=== PATIENT | female | born 1965 | race Caucasian/White ===

== ENCOUNTER → 2018-10-21 08:40 | Outpatient (CLI) | payer OTHER, SELFPAY ==
[2018-10-21 10:09] LABS: Add Manual Diff / Slide Review NO; Basophils Absolute Auto 0 /uL (0-100); Basophils Percent Auto 0.4 % (0-2); Eosinophils Absolute Auto 200 /uL (0-450); Eosinophils Percent Auto 3.1 % (2-4); Hematocrit 37.2 % (36-46); Hemoglobin 12.3 g/dL (12.0-16.0); Lymphocytes Absolute Auto 2000 /uL (1100-4500); Lymphocytes Percent Auto 26.6 % (25-40); Mean Corpuscular HGB Conc 33.1 % (30-36); Mean Corpuscular Hemoglobin 27.5 PG (26-34); Mean Corpuscular Volume 82.9 fL (80-100); Monocytes Absolute Auto 500 /uL (0-900); Monocytes Percent Auto 7.3 % (3-14); Neutrophils Absolute Auto 4700 /uL (1500-7000); Neutrophils Percent Auto 62.6 % (50-75); Platelet Count 312 X10^3/uL (150-400); Red Blood Cell Count 4.48 X10^6/uL (4.0-5.2); Red Cell Distribution Width 14.7 % (11.6-14.8); White Blood Cell Count 7.5 X10^3/uL (4.5-11.0)
== END ==
PROVIDERS: Visit Provider Specialist
DX: N92.0 Excessive and frequent menstruation with regular cycle (principal)
CPT/HCPCS: 36415; 85025

== ENCOUNTER 2018-10-24 06:33 | Day surgery (SDC) | payer OTHER, SELFPAY ==
[2018-10-09 08:29] VITALS: BMI 26.4
[2018-10-24] VITALS (13 sets, daily range): BP systolic 125–155; BP diastolic 58–94; PULSE 60–92; RESP 10–20; TEMP 36.2–36.6; O2SAT 94–99; BMI 26.1
--- NOTE | 2018-10-24 | PATH_ITS ---
[facility] Accession Number: [id number] . 01 Material submitted: . uterus - UTERUS AND BILATERAL FALLOPIAN TUBES WITH PERITUBAL CYSTS . 02 Diagnosis: Uterus And Bilateral Fallopian Tubes, Hysterectomy, Bilateral Salpingectomy: 1. Fallopian tube with adenofibroma and endosalpingiosis. 2. Second fallopian tube with paratubal cysts and endometriosis. 3. Multiple leiomyomas. 4. Disordered proliferative endometrium, negative for hyperplasia or atypia. 5. No evidence of borderline tumor or malignancy. BFI/10/28/2018 . 02 Electronically signed: . Dianne Jennings MD, Pathologist NPI- [id number] . 01 Gross description: . Received in formalin, labeled uterus +bilateral fallopian tubes with paratubal cysts, is a morcellated uterus (140 grams, 11.8 x 10.8 x 4.6 cm in aggregate) and two fimbriated fallopian tubes (tube #1: length-4.0 cm, diameter-0.3 cm; tube #2: length-3.8 cm, diameter-0.4 cm). The cervix and ovaries are absent. The specimen cannot be oriented and the endometrium and myometrium cannot be grossly measured. The parenchyma is lim and contains multiple solid firm white whorled well-circumscribed homogenous nodules (0.1 x 0.1 x 0.1 cm-2.8 x 2.5 x 1.7 cm). The serosa is lim smooth and shiny. The fallopian tubes have lim-pink smooth shiny serosa. Tube #1 has multiple paratubal cysts (0.5 x 0.2 x 0.2 cm-0.7 x 0.5 x 0.3 cm) containing clear colorless fluid. Fallopian tube #2 is partially encased within a cyst (4.1 x 2.8 x 2.3 cm) containing clear brown fluid. The lining is georges-lim with diffuse excrescences. The lumens are lim and unremarkable. A separate georges-lim membranous cyst (3.2 x 2.4 x 0.7 cm) is identified. The lining contains multiple georges-white rubbery excrescences. Section code: (A1-A5) uterine parenchyma, nodules, claims service representative; (A6) fallopian tube #1, claims service representative serial sections; (A7) fimbria #1, bivalved, entirely submitted; (A8, A9) fallopian tube #2, claims service representative serial sections; (A10, A11) fallopian tube #2 with cyst, claims service representative serial sections; (A12) separate cysts, claims service representative serial sections. ([id number]) /MRV . 02 Pathologist provided ICD-10: N80.9, D28.2 . 02 CPT . 962594 Performed at: 01 [facility] [address] [id number] MD Scott Valerio MD Phone: [phone] Performed at: 02 [facility] [address] [place], [place] [id number] MD Dianne Jennings MD Phone: [phone]
[2018-10-24] MEDS: LACTATED RINGERS 1,000 ML 100 ML IV ×3 (07:30→10:43)
--- NOTE | 2018-10-24 07:34 | PM.PREOP ---
Pre-operative Note Interval Note History & Physical reviewed/Exam performed by Physician: Yes Changes to H&P: No
--- NOTE | 2018-10-24 07:39 | PC.NURSE ---
Day shift: Pt not on AC unit at this time.
[2018-10-24] MEDS: CLINDAMYCIN 900 MG/50 ML PIGGYBACK 50 MG IV (07:49)
--- NOTE | 2018-10-24 08:22 | SUR.OPER ---
Lithotomy on padded OR bed. Callao Pad Positioner under torso. Head on pillow, arms padded and tucked at sides. Legs secured in padded yellow fins stirrups.
[2018-10-24] MEDS: BUPIVACAINE 0.5% W/ EPI (PF) VIAL 30 ML INJ (08:46)
--- NOTE | 2018-10-24 09:25 | P.OP_ITS ---
Operative Date/Time/Diagnoses Date of procedure: 10/24/18 Time of procedure: 09:20 Pre-op diagnosis: Menorrhagia with bilateral pelvic cysts Post-op diagnosis: same Procedure & Clinicians Procedure: Laparoscopic supracervical hysterectomy with bilateral salpingectomies with removal of bilateral paratubal cysts Same procedure as scheduled: Yes Indications: Menorrhagia with bilateral pelvic cysts Surgeon: Tomasa Rayo Plant Electrician: Gabrielle Kolb Click Yes if Unassisted: No Anesthesia Type: General Operative Notes Findings: Mildly enlarged uterus with adhesion anteriorly at the bladder flap from the prior section, normal fallopian tubes and ovaries, bilateral large paratubal cyst, no evidence of endometriosis, no internal hernias, normal liver edge, normal bowel surface Closure Type: primary Specimen(s): other (Supracervical hysterectomy, bilateral tubes, bilateral paratubal cyst) Estimated Blood Loss (mL): 50 Blood products transfused: none Procedure in detail: Patient is brought to the operating room where she underwent general anesthesia [facility] She was prepped and draped in the usual sterile fashion. A check list was reviewed with the staff in the room prior to beginning of the case. Patient had pulsatile stockings in place and functional. 900 mg of clindamycin were in prior to beginning of the case.. A Lindo catheter was placed. A single-tooth tenaculum was placed on the anterior lip of the cervix and the cervix dilated to a #6 Hegar dilator. The uterine manipulator was placed through the cervix into the uterus with the balloon inflated with 3 mL of air. The area of the umbilical incision and the 5 mm right and left lower quadrant incisions were injected with Marcaine. An incision was made with scalpel. The verries needle was placed into the abdomen and confirmed in the appropriate place with withdrawal on a syringe and then free flow of fluid down through the needle. The abdomen was insufflated with CO2. The needle was removed and a 5 mm trocar placed without difficulty. There did not appear to be any damage is placement of the trocar. The right and left lower quadrant incisions were made with the scalpel and the trochars placed without damage to internal structures. The PK forceps were used to cauterize along the mesosalpinx followed by the round ligaments on both sides. The utero-ovarian ligaments were cauterized and cut. Sequential bites were taken down the broad ligaments. The uterine arteries were cauterized. An incision was made above the level bladder pushing the bladder away from the cervix. The LEONIDES loop was placed around the uterus and the uterus was amputated above the level of the bladder. Bleeding was controlled with the PK forceps. The PK forceps were used to cauterize in the endocervical canal. A supracervical incision was made and an 11 mm port placed. A 15 mm Endo Catch bag was placed in the abdomen. The uterus, tubes and para tubal cyst were placed in the bag and brought up through the suprapubic port site. The Gulshan O was placed. The uterus was hand morselized. The abdomen was reinsufflated and adequate hemostasis was noted. The trochars were removed and the CO2 allowed escape from the abdomen. The fascia layer of the suprapubic site was repaired with 0 Polysorb suture. Skin was closed with 4-0 Monocryl suture at the suprapubic site and the other 3 sites. The Lindo catheter was removed. The patient went to recovery room in good condition. Counts of instruments and sponges were correct. Complications: none Condition: stable Disposition: observation Plan for aftercare: Patient will likely be discharged later today after confirming she is not nauseated and able to ambulate.
[2018-10-24] MEDS: fentaNYL 100 MCG/2 ML INJ 50 MCG IV (09:42)
--- NOTE | 2018-10-24 10:45 | PC.NURSE ---
Patient oriented to room and call light, vss, denies pain at this time, just reports mild cramping. Patient states she would really like to try and sleep. BEd alarm activated for safety, call light placed within reach. Patient agrees to call for assistance getting up.
[2018-10-24] MEDS: KETOROLAC 30 MG/ML VIAL IV ×2 (12:56→19:45)
--- NOTE | 2018-10-24 14:15 | PM.DS.1 ---
History of Present Illness Date Patient Seen: 10/24/18 Time Patient Seen: 14:15 Chief complaint: OPB [id number] Narrative: Postoperative laparoscopic supracervical hysterectomy with bilateral salpingectomy and removal bilateral paratubal cysts Discharge Providers Discharge Date: 10/24/18 Primary care physician: EKTA Wilder Discharge provider: Tomasa Rayo MD Summary Discharge Diagnosis: Menorrhagia and pelvic cysts on ultrasound status post laparoscopic supracervical hysterectomy, bilateral salpingectomies, of removal of bilateral paratubal cysts Hospital Course: Patient underwent a laparoscopic supracervical hysterectomy. She did well postoperatively. She was ambulatory. She denies any nausea. Her pain was under control. She was able to urinate. Status at Discharge Cognitive/behavioral status at discharge: oriented Exam Vital Signs (past 8 hours): - 10/24/18 07:17 10/24/18 09:23 10/24/18 09:28 Temperature 97.6 F 97.8 F Pulse Rate 75 63 62 Respiratory Rate 15 10 L 15 Blood Pressure 139/83 155/67 H 153/67 H Pulse Oximetry 99 94 94 10/24/18 09:33 10/24/18 09:40 10/24/18 09:55 Temperature Pulse Rate 60 66 63 Respiratory Rate 18 14 11 L Blood Pressure 147/60 H 141/66 H 135/60 Pulse Oximetry 95 95 96 10/24/18 10:10 10/24/18 10:27 10/24/18 10:50 Temperature 97.7 F 97.6 F 97.1 F L Pulse Rate 60 74 62 Respiratory Rate 14 15 15 Blood Pressure 138/58 L 125/72 126/79 Pulse Oximetry 98 98 97 10/24/18 11:36 10/24/18 12:20 10/24/18 13:20 Temperature 97.2 F L 97.8 F 97.4 F L Pulse Rate 63 74 92 H Respiratory Rate 15 15 15 Blood Pressure 134/80 143/94 H 141/82 H Pulse Oximetry 98 98 98 Oxygen Delivery Method Room Air Narrative Exam Narrative: Her abdomen is soft with mild tenderness. Her dressings are dry. Minimal vaginal bleeding. Extremities without edema and nontender. Discharge Plan Discharge Plan Patient Disposition: Home Discharge Med Rec/Prescriptions Prescriptions: Continued ketorolac 10 mg tablet 10 mg PO Q6H PRN (Reason: Pain) RF: 0 hydrocodone-acetaminophen 5-325 mg tablet 2 tab PO Q4-6H PRN (Reason: pain) Qty: 30 RF: 0 Follow up/Referrals: Reanna Danielle ARNP [Primary Care Provider] - Tomasa Rayo MD [Physician] - 1 Week (pt has appointment scheduled) Discharge Orders: Discharge (Order); Ordered 10/24/18 Ordered By: Tomasa Rayo Provider Discharge Instructions Diet: Regular Activity: nothing in vagina or heavy lifting for 1 week Skin/Wound/Dressing Care Report to your healthcare provider any signs of infection, such as:: chills, fever, increased pain and unusual redness Dressing: may remove bandaids in 24 hours, leave steri strips on for 1 week can get wet just pat dry Visit Report/Discharge Packet Instructions: DI for Hysterectomy, DI for Laparoscopy Stand Alone Forms: Surgery Discharge Discharge Data Primary Care Provider: Reanna Danielle Attending Provider: Tomasa Rayo
== END 2018-10-24 19:57 | disposition home or self-care (01) ==
LOC: OR 06:36 → AC 06:37
PROVIDERS: PCP Nurse Practitioner; Visit Provider Specialist
PROC: 0UT94ZL Resection of Uterus, Supracervical, Percutaneous Endoscopic Approach (ICD-10-PCS; CPT 58542; principal; 2018-10-24 07:45)
DX: N80.9 Endometriosis, unspecified (principal); N99.4 Postprocedural pelvic peritoneal adhesions; D28.2 Benign neoplasm of uterine tubes and ligaments
CPT/HCPCS: 58542; J1100; J1885; J2250; J2405; J2704; J3010